=== PATIENT | female | born 1995 | race Caucasian/White ===

== ENCOUNTER 2017-03-20 00:31 | Emergency (ER) | payer OTHER | END 2017-03-20 01:16 | disposition left against medical advice (07) | LOC: ER 00:31 | DX: R30.0 Dysuria (principal); R35.0 Frequency of micturition; F32.9 Major depressive disorder, single episode, unspecified; F41.9 Anxiety disorder, unspecified; Z79.899 Other long term (current) drug therapy; Z88.1 Allergy status to other antibiotic agents ==